=== PATIENT | female | born 1950 | race Caucasian/White ===

== ENCOUNTER 2017-02-23 08:55 | Day surgery (SDC) | payer MEDICARE ==
[2011-10-25 21:37] VITALS: BP 146/88
[2017-02-23] MEDS ORDERED: DIPRIVAN 200 MG/20 ML IV ONE (08:56)
[2017-02-23] MEDS ORDERED: Lactated Ringers 1,000 ML IV ONE (08:56)
[2017-02-23] MEDS ORDERED: Xylocaine 1% Vial 30 ML PF IJ ONE (08:56)
[2017-02-23] MEDS ORDERED: Ketamine HCl 50 MG/ML IV ONE (08:56)
[2017-02-23] MEDS ORDERED: Marcaine 0.5% SDV 10 ML IJ ONE (08:56)
--- NOTE | 2017-02-23 11:13 | XRAY ---
Indication: Right knee GNB. Intraoperative fluoroscopy was provided for 1 minute 17 seconds. 5 digital spot images submitted for interpretation demonstrates 3 anterior spinal needle tips projecting over the distal femur and 1 anterior spinal needle tip projecting over the proximal medial tibia. Correlate with intraoperative findings/report.
--- NOTE | 2017-02-23 11:38 | OP ---
DATE OF PROCEDURE: 02/23/2017 0954 SURGEON: Cristopher Mustafa D.O. PREOPERATIVE DIAGNOSIS: Knee pain. POSTOPERATIVE DIAGNOSIS: Knee pain. PROCEDURES PERFORMED: Right genicular nerve block under fluoroscopic guidance. DESCRIPTION OF THE PROCEDURE: The patient was taken to the operating room and laid in the supine position on the table. The skin over the injection site was prepped and draped in sterile fashion. Under fluoroscope, the target bony structure site was visualized. Induction agent was given as per anesthesia while vital signs were monitored. Local anesthetic agent was introduced to anesthetize the skin in the subcutaneous tissue through the injection site. Under fluoroscopic guidance, a 20-gauge spinal needle was advanced into the target genicular nerves. 0.5 cc of 1% lidocaine and 0.5 cc of 0.25% Marcaine preservative free was injected into the target nerve. After the needle was removed, the skin was cleansed with alcohol and then a bandage was applied. No complications or adverse consequences were observed. The patient was returned to the holding area until stabilized before being discharged to home. There was 100% pain relief after the procedure. The patient will be followed up within 10 days after the injection for re-evaluation.
--- NOTE | 2017-02-23 13:42 | XRAY ---
1 minute 17 seconds fluoroscopy time in surgery for GNB.
== END 2017-02-23 11:10 | disposition home or self-care (01) ==
LOC: SDC-PAIN 08:55
PROVIDERS: ATTEND Internal Medicine
DX: M17.11 Unilateral primary osteoarthritis, right knee (principal); M15.9 Polyosteoarthritis, unspecified; M25.561 Pain in right knee
CPT/HCPCS: 64450; 73560; 77003; J2001; J2704

== ENCOUNTER 2017-03-09 11:21 | Day surgery (SDC) | payer MEDICARE ==
[2011-10-25 21:37] VITALS: BP 146/88
[2017-03-09] MEDS ORDERED: Marcaine 0.5% SDV 10 ML IJ ONE (11:22)
[2017-03-09] MEDS ORDERED: DIPRIVAN 200 MG/20 ML IV ONE (11:22)
[2017-03-09] MEDS ORDERED: Xylocaine 1% Vial 30 ML PF IJ ONE (11:22)
[2017-03-09] MEDS ORDERED: Lactated Ringers 1,000 ML IV ONE (11:22)
--- NOTE | 2017-03-09 14:59 | OP ---
DATE OF PROCEDURE: 03/09/2017 1210 SURGEON: Cristopher Mustafa D.O. PREOPERATIVE DIAGNOSES: Degenerative knee disease, osteoarthritis of the knee, knee pain. POSTOPERATIVE DIAGNOSES: Degenerative knee disease, osteoarthritis of the knee, knee pain. PROCEDURE PERFORMED: Right knee genicular nerve block under fluoroscopic guidance. DESCRIPTION OF THE PROCEDURE: The patient was taken to the operating room and laid in the supine position on the table. The skin over the injection site was prepped and draped in sterile fashion. Under fluoroscope, the target bony structure site was visualized. Induction agent was given as per anesthesia while vital signs were monitored. Local anesthetic agent was introduced to anesthetize the skin in the subcutaneous tissue through the injection site. Under fluoroscopic guidance, a 20-gauge spinal needle was advanced into the target genicular nerves. The preservative free 0.5 cc of 1% lidocaine and 0.5 cc of 0.25 - 0.5% Marcaine were injected into the target nerve. After the needle was removed, the skin was cleansed with alcohol and then a bandage was applied. No complications or adverse consequences were observed. The patient was returned to the holding area until stabilized before being discharged to home. There was 90% pain reduction after the procedure. The patient will be followed up within 10 days after the injection for re-evaluation.
--- NOTE | 2017-03-09 15:27 | XRAY ---
Indication: Right knee GNB. Intraoperative fluoroscopy was provided for 49 seconds. 4 digital spot images submitted for interpretation demonstrates 3 anterior spinal needle tips projecting over the distal femur and 1 anterior spinal needle tip projecting over the proximal medial tibia. Correlate with intraoperative findings/report.
--- NOTE | 2017-03-09 15:37 | XRAY ---
49 seconds fluoroscopy time in surgery for right GNB.
== END 2017-03-09 12:55 | disposition home or self-care (01) ==
LOC: SDC-PAIN 11:21
PROVIDERS: ATTEND Internal Medicine
DX: M25.561 Pain in right knee (principal); M17.11 Unilateral primary osteoarthritis, right knee; M15.9 Polyosteoarthritis, unspecified
CPT/HCPCS: 64450; 73560; 77003; J2001; J2704

== ENCOUNTER 2017-04-20 09:14 | Day surgery (SDC) | payer MEDICARE ==
[2011-10-25 21:37] VITALS: BP 146/88
[2017-04-20] MEDS ORDERED: DIPRIVAN 200 MG/20 ML IV ONE (09:15)
[2017-04-20] MEDS ORDERED: Marcaine 0.5% SDV 10 ML IJ ONE (09:15)
[2017-04-20] MEDS ORDERED: Lactated Ringers 1,000 ML IV ONE (09:15)
[2017-04-20] MEDS ORDERED: Xylocaine-Mpf 2% 5 Ml Vial IJ ONE (09:15)
--- NOTE | 2017-04-20 15:16 | XRAY ---
Indication: Right knee RFA. Intraoperative fluoroscopy was provided for 36 seconds. 5 digital spot images submitted for interpretation demonstrates 3 anterior needle tips projecting over the distal femur and 1 anterior needle tip projecting over the proximal medial tibia. Correlate with intraoperative findings/report.
--- NOTE | 2017-04-20 15:25 | XRAY ---
36 seconds fluoroscopy time in surgery for right knee RFA.
--- NOTE | 2017-04-21 08:33 | OP ---
DATE OF PROCEDURE: 04/20/2017 1250 SURGEON: Cristopher Mustafa D.O. PREOPERATIVE DIAGNOSIS: Degenerative knee disease, osteoarthritis of the knee, knee pain. POSTOPERATIVE DIAGNOSIS: Degenerative knee disease, osteoarthritis of the knee, knee pain. PROCEDURES PERFORMED: Right genicular nerve radiofrequency ablation under fluoroscopic guidance. DESCRIPTION OF THE PROCEDURE: The patient was taken to the operating room and laid in the supine position on the table. The skin over the injection site was prepped and draped in sterile fashion. Under fluoroscope, the bony anatomy at the target insertion site was visualized. Induction agent was given as per anesthesia, while vital signs were monitored. Local anesthetic agent was introduced to anesthetize the skin in the subcutaneous tissue through the injection site. Under fluoroscopic guidance a standard size spinal needle with cannula was advanced into the target medial branch nerve as per standard protocol. Before the radiofrequency ablation motor and sensory nerve testing was conducted as per protocol. Under the safety guidance which ensured no motor nerves being involved, right genicular nerve radiofrequency ablation was conducted at 80 degrees Celsius for 90 seconds as per standard protocol for each level of radiofrequency ablation. After the needle and cannula were removed the skin was cleansed with alcohol and then a bandage was applied. No complications or adverse consequences were observed. The patient was returned to the holding area until stabilized before being discharged to home. The self-reported preoperative pain level is 9 out of 10. Postoperative pain level is 0 out of 10. The patient will be followed up within 10 days after the genicular nerve block for further re-evaluation.
== END 2017-04-20 13:50 | disposition home or self-care (01) ==
LOC: SDC-PAIN 09:14
PROVIDERS: ATTEND Internal Medicine
DX: M25.512 Pain in left shoulder (principal); M25.561 Pain in right knee; M17.11 Unilateral primary osteoarthritis, right knee; Z79.891 Long term (current) use of opiate analgesic
CPT/HCPCS: 64640; 73560; 77003; J2704

== ENCOUNTER 2017-07-13 15:48 | Emergency (ER) | payer MEDICARE ==
--- NOTE | 2017-07-13 16:41 | ERPHSYRPT ---
- History of Present Illness Time Seen by Provider: 07/13/17 16:33 Source: patient Exam Limitations: no limitations Patient Subjective Stated Complaint: low blood pressure, weak, tired Triage Nursing Assessment: Pt A&O x3, complaints of low blood pressure, tiredness and weakness, bp 152/83 upon arrival, blood sugar 90, pulses normal, no difficulties with strength, denies pain, temp 99.2, doesn't appear to be in any distress Physician History: 66 morbidly obese white female with history of migraines, high blood pressure congestive heart failure, hypothyroidism. Arrives with complaints of feeling weak and tired symptoms all day she states that her ears are been ringing patient states that she noticed her blood pressure to be low at home 98/40. Patient arrives with normal blood pressure she has not had any speech disorders she is not having any problems moving. past medical history includes migraines, high blood pressure, congestive heart failure, hypothyroidism, arthritis, fibromyalgia, irritable bowel, depression Past surgical history includes appendectomy, cholecystectomy, joint replacement , hysterectomy, back surgery, gastric bypass, tonsillectomy. Timing/Duration: today Severity: mild Modifying Factors: Improves With: nothing Associated Symptoms: malaise, weakness, No nausea, No vomiting, No abdominal pain, No shortness of breath, No heartburn, No diaphoresis, No cough, No chills , No chest pain, No fever, No headaches, No loss of appetite, No syncope, No seizure Allergies/Adverse Reactions: No Known Drug Allergies Allergy (Verified 07/13/17 16:02) Home Medications: Meloxicam 15 mg [Meloxicam 15 MG] 15 mg PO DAILY 09/03/16 [History] Tizanidine HCl 4 mg [Zanaflex 4 MG] 4 mg PO HS 09/03/16 [History] Allopurinol 100 mg [Zyloprim 100 mg] 200 mg PO DAILY 04/05/17 [History] Carvedilol 12.5 mg [Coreg 12.5 mg] 12.5 mg PO BID 04/05/17 [History] Duloxetine HCl 60 mg PO DAILY 04/05/17 [History] Glimepiride 2 mg [Amaryl 2 MG] 2 mg PO DAILY 04/05/17 [History] Levothyroxine Sodium 50 Mcg [Synthroid 50 Mcg] 50 mcg PO DAILY 04/05/17 [ History] Olmesartan Medoxomil [Benicar] 40 mg PO DAILY 04/05/17 [History] Omeprazole 40 mg PO DAILY 04/05/17 [History] Trazodone HCl 50 mg [Desyrel 50 mg] 50 mg PO HS 04/05/17 [History] Triamterene/Hydrochlorothiazid [Triamterene-Hctz 37.5-25 mg Cp] 1 each PO DAILY 04/05/17 [History] Zaleplon [Sonata] 10 mg PO HS 04/05/17 [History] Oxycodone HCl/Acetaminophen [Percocet 10-325 mg Tablet] 1 each PO Q8H PRN PRN [History] Furosemide 20 mg [Lasix 20 mg] 20 mg PO DAILY 05/03/17 [History] Furosemide [Lasix] 80 mg PO DAILY 05/03/17 [History] Felodipine [Plendil] 10 mg PO DAILY 07/13/17 [History] Hx Tetanus, Diphtheria Vaccination/Date Given: Yes (unknown) Hx Influenza Vaccination/Date Given: No Hx Pneumococcal Vaccination/Date Given: No - Review of Systems Constitutional: Malaise, Weakness, No Fever, No Chills Eyes: No Symptoms Ears, Nose, & Throat: No Symptoms, Other (feels like ears were ringing today) Respiratory: No Cough, No Dyspnea Cardiac: No Chest Pain, No Edema, No Syncope Abdominal/Gastrointestinal: No Abdominal Pain, No Nausea, No Vomiting, No Diarrhea Genitourinary Symptoms: No Dysuria Musculoskeletal: No Symptoms Skin: No Rash Neurological: No Dizziness, No Focal Weakness, No Sensory Changes Psychological: No Symptoms Endocrine: No Symptoms All Other Systems: Reviewed and Negative - Past Medical History Pertinent Past Medical History: Yes Neurological History: No Pertinent History ENT History: No Pertinent History Cardiac History: Hypertension Respiratory History: Asthma Endocrine Medical History: Hypoglycemia Musculoskeletal History: Arthritis GI Medical History: Irritable Bowel History: No Pertinent History Psycho-Social History: Depression Female Reproductive Disorders: No Pertinent History - Past Surgical History Past Surgical History: Yes Neuro Surgical History: No Pertinent History Cardiac: No Pertinent History Respiratory: No Pertinent History Gastrointestinal: Appendectomy, Cholecystectomy Genitourinary: No Pertinent History Musculoskeletal: Joint Replacement, Other Female Surgical History: Hysterectomy Other Surgical History: back surgery. gastric bypass. tonsilectomy - Social History Smoking Status: Never smoker Exposure to second hand smoke: No Drug Use: none Patient Lives Alone: No - Nursing Vital Signs Nursing Vital Signs: Initial Vital Signs Temperature 99.2 F 07/13/17 15:53 Pulse Rate 83 07/13/17 15:53 Blood Pressure 152/83 07/13/17 15:53 O2 Sat by Pulse Oximetry 96 07/13/17 15:53 Pain Scale Pain Intensity 0 - Physical Exam General Appearance: other (well-developed obese white female alert oriented ) Eye Exam: PERRL/EOMI, eyes nml inspection Ears, Nose, Throat Exam: normal ENT inspection, TMs normal, pharynx normal, moist mucous membranes Neck Exam: normal inspection, non-tender, supple, full range of motion Respiratory Exam: normal breath sounds, lungs clear, No respiratory distress Cardiovascular Exam: regular rate/rhythm, normal heart sounds, normal peripheral pulses Gastrointestinal/Abdomen Exam: soft, normal bowel sounds, No tenderness, No mass Back Exam: normal inspection, normal range of motion, No CVA tenderness, No vertebral tenderness Extremity Exam: normal inspection, normal range of motion, pelvis stable Neurologic Exam: alert, oriented x 3, cooperative, 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, normal mood/affect, nml cerebellar function, nml station & gait, sensation nml, No motor deficits Skin Exam: normal color, warm, dry, No rash Lymphatic Exam: No adenopathy SpO2 Interpretation: normal SpO2: 96 Oxygen Delivery: Room Air - Course Nursing assessment & vital signs reviewed: Yes EKG Interpreted by Me: RATE (67 bpm), Sinus Rhythm, NORMAL AXIS, Other (EKG: Sinus rhythm, 67 bpm, normal axis, no acute ST or T wave changes, essentially normal EKG) Ordered Tests: Active Orders 24 hr Category Date Time Status Accucheck STAT Care 07/13/17 16:37 Active Associate Engineer STAT Care 07/13/17 16:37 Active EKG-ER Only STAT Care 07/13/17 16:37 Active IV Insertion STAT Care 07/13/17 16:37 Active Orthostatic Vital Signs STAT Care 07/13/17 16:38 Active CBC W DIFF Stat Lab 07/13/17 16:23 Completed CMP Stat Lab 07/13/17 16:23 Completed CULTURE,URINE Stat Lab 07/13/17 19:30 Received ETHYL ALCOHOL Stat Lab 07/13/17 16:23 Completed UA W/ MICROSCOPIC Stat Lab 07/13/17 19:30 Completed Urine Triage Profile Stat Lab 07/13/17 19:30 Completed Medication Summary Generic Name Dose Route Start Last Admin Trade Name Freq PRN Reason Stop Dose Admin Sodium Chloride 1,000 mls @ 100 mls/hr 07/13/17 16:45 07/13/17 16:43 Sodium Chloride 0.9% 1000 Ml IV 08/12/17 16:44 100 mls/hr .Q10H REFUGIO Administration Discontinued Medications Generic Name Dose Route Start Last Admin Trade Name Freq PRN Reason Stop Dose Admin Potassium Bicarbonate 25 meq 07/13/17 19:15 07/13/17 19:22 K-Lyte 25 Meq PO 07/13/17 19:16 25 meq STAT ONE Administration Potassium Bicarbonate Confirm 07/13/17 19:19 K-Lyte 25 Meq Administered 07/13/17 19:20 Dose 25 meq .ROUTE .STK-MED ONE Lab/Rad Data: Laboratory Result Diagrams 07/13/17 16:23 07/13/17 16:23 Laboratory Results 07/13/17 07/13/17 07/13/17 Range/Units 19:30 19:30 16:23 WBC (4.0-10.5) K/mm3 RBC (4.1-5.4) M/mm3 Hgb (12.0-16.0) gm/dl Hct (35-47) % MCV (78-100) fl MCH (26-32) pg MCHC (32-36) g/dl RDW (11.5-14.0) % Plt Count (150-450) K/mm3 MPV (6-9.5) fl Gran % (36.0-66.0) % Eos # (Auto) (0-0.5) Absolute Lymphs (auto) (1.0-4.6) Absolute Monos (auto) (0.0-1.3) Lymphocytes % (24.0-44.0) % Monocytes % (0.0-12.0) % Eosinophils % (0.00-5.0) % Basophils % (0.0-0.4) % Absolute Granulocytes (1.4-6.9) Basophils # (0-0.4) Sodium 145 (137-145) mmol/L Potassium 3.3 L (3.5-5.1) mmol/L Chloride 110 H (98-107) mmol/L Carbon Dioxide 25 (22-30) mmol/L Anion Gap 13.7 (5-15) MEQ/L BUN 18 H (7-17) mg/dL Creatinine 0.68 (0.52-1.04) mg/dL Estimated GFR > 60.0 ML/MIN Glucose 85 (74-106) mg/dL Calcium 9.0 (8.4-10.2) mg/dL Total Bilirubin 0.30 (0.2-1.3) mg/dL AST 26 (14-36) U/L ALT 31 (0-35) U/L Alkaline Phosphatase 127 H (38-126) U/L Serum Total Protein 6.5 (6.3-8.2) g/dL Albumin 3.7 (3.5-5.0) g/dL Ur Collection Type VOID Urine Color YELLOW (YELLOW) Urine Appearance SLIGHTLY CLOUDY (CLEAR) Urine pH 5.0 (5-6) Ur Specific [place] 1.020 (1.005-1.025) Urine Protein NEGATIVE (Negative) Urine Ketones NEGATIVE (NEGATIVE) Urine Blood NEGATIVE (0-5) Adi/ul Urine Nitrite NEGATIVE (NEGATIVE) Urine Bilirubin NEGATIVE (NEGATIVE) Urine Urobilinogen NORMAL (0-1) mg/dL Ur Leukocyte Esterase 1+ (NEGATIVE) Urine Microscopic RBC 0-2 (0-2) /HPF Urine Microscopic WBC 10-15 (0-5) /HPF Ur Epithelial Cells MANY (FEW) /HPF Calcium Oxalate Crystal 0-2 (NEGATIVE) /HPF Urine Bacteria MANY (NEGATIVE) /HPF Urine Mucus MODERATE (NEGATIVE) /HPF Urine Culture Reflexed YES (NO) Urine Glucose NEGATIVE (NEGATIVE) mg/dL Urine Opiates Level POSITIVE (NEGATIVE) Ur Methadone NEGATIVE (NEGATIVE) Urine Barbiturates NEGATIVE (NEGATIVE) Ur Phencyclidine (PCP) NEGATIVE (NEGATIVE) Urine Amphetamine NEGATIVE (NEGATIVE) U Benzodiazepine Level NEGATIVE (NEGATIVE) Urine Cocaine NEGATIVE (NEGATIVE) Urine Marijuana (THC) NEGATIVE (NEGATIVE) Ethyl Alcohol < 10 (0-10) mg/dL Specimen Received 07/13/17193907/13/17 Range/Units 16:23 WBC 7.0 (4.0-10.5) K/mm3 RBC 4.33 (4.1-5.4) M/mm3 Hgb 14.9 (12.0-16.0) gm/dl Hct 43.6 (35-47) % MCV 100.7 H (78-100) fl MCH 34.4 H (26-32) pg MCHC 34.2 (32-36) g/dl RDW 14.2 H (11.5-14.0) % Plt Count 209 (150-450) K/mm3 MPV 10.6 H (6-9.5) fl Gran % 41.0 (36.0-66.0) % Eos # (Auto) 0.42 (0-0.5) Absolute Lymphs (auto) 3.19 (1.0-4.6) Absolute Monos (auto) 0.51 (0.0-1.3) Lymphocytes % 45.4 H (24.0-44.0) % Monocytes % 7.3 (0.0-12.0) % Eosinophils % 6.0 H (0.00-5.0) % Basophils % 0.3 (0.0-0.4) % Absolute Granulocytes 2.89 (1.4-6.9) Basophils # 0.02 (0-0.4) Sodium (137-145) mmol/L Potassium (3.5-5.1) mmol/L Chloride (98-107) mmol/L Carbon Dioxide (22-30) mmol/L Anion Gap (5-15) MEQ/L BUN (7-17) mg/dL Creatinine (0.52-1.04) mg/dL Estimated GFR ML/MIN Glucose (74-106) mg/dL Calcium (8.4-10.2) mg/dL Total Bilirubin (0.2-1.3) mg/dL AST (14-36) U/L ALT (0-35) U/L Alkaline Phosphatase (38-126) U/L Serum Total Protein (6.3-8.2) g/dL Albumin (3.5-5.0) g/dL Ur Collection Type Urine Color (YELLOW) Urine Appearance (CLEAR) Urine pH (5-6) Ur Specific [place] (1.005-1.025) Urine Protein (Negative) Urine Ketones (NEGATIVE) Urine Blood (0-5) Adi/ul Urine Nitrite (NEGATIVE) Urine Bilirubin (NEGATIVE) Urine Urobilinogen (0-1) mg/dL Ur Leukocyte Esterase (NEGATIVE) Urine Microscopic RBC (0-2) /HPF Urine Microscopic WBC (0-5) /HPF Ur Epithelial Cells (FEW) /HPF Calcium Oxalate Crystal (NEGATIVE) /HPF Urine Bacteria (NEGATIVE) /HPF Urine Mucus (NEGATIVE) /HPF Urine Culture Reflexed (NO) Urine Glucose (NEGATIVE) mg/dL Urine Opiates Level (NEGATIVE) Ur Methadone (NEGATIVE) Urine Barbiturates (NEGATIVE) Ur Phencyclidine (PCP) (NEGATIVE) Urine Amphetamine (NEGATIVE) U Benzodiazepine Level (NEGATIVE) Urine Cocaine (NEGATIVE) Urine Marijuana (THC) (NEGATIVE) Ethyl Alcohol (0-10) mg/dL Specimen Received - Progress Progress: improved Progress Note: 07/13/17 18:55 Patient is stable CBC chemistry essentially normal glucose is 85. Still waiting for urine. 07/13/17 20:08 Patient feeling better after IV fluids. Urine shows 10-15 white cells. Orthostats are stable. Patient with mild hypokalemia of 3.3 on chemistry patient's white count is 7.0 hemoglobin 14.3 hematocrit 43.6 Will discharge patient - Departure Time of Disposition: 20:10 Departure Disposition: Home Clinical Impression: Dizziness UTI (urinary tract infection) Qualifiers: Urinary tract infection type: site unspecified Hematuria presence: without hematuria Qualified Code(s): N39.0 - Urinary tract infection, site not specified Condition: Fair Critical Care Time: No Referrals: GIOVANI GARCIA [Primary Care Provider] - Additional Instructions: Return home. Plenty of fluids. Macrobid one orally twice a day for 10 days. Follow-up with your family doctor. Return for acute distress or for severe symptoms. Prescriptions: Nitrofurantoin Macro 100 mg [Macrobid 100MG Capsule] 100 mg PO BID #20 cap
[2017-07-13] MEDS ORDERED: Sodium Chloride 0.9% 1000 ML 1,000 ML ONE (16:42)
[2017-07-13] MEDS ORDERED: Sodium Chloride 0.9% 1000 ML 1,000 ML IV SCH (16:45)
[2017-07-13 17:06] LABS: BASOPHIL % 0.3 % (0.0-0.4); Basophil (Absolute #) 0.02 (0-0.4); Eosinophil (Absolute #) 0.42 (0-0.5); Granulocyte Absolute (ANC) 2.89 (1.4-6.9); Hematocrit 43.6 % (35-47); Hemoglobin 14.9 gm/dl (12.0-16.0); Lymphocyte (Absolute #) 3.19 (1.0-4.6); Lymphocytes % 45.4 % (24.0-44.0); Mean Cell Volume 100.7 fl (78-100); Mean Corpuscular Hemoglobin 34.4 pg (26-32); Mean Corpuscular Hgb Concent. 34.2 g/dl (32-36); Mean Platelet Volume 10.6 fl (6-9.5); Monocyte (Absolute #) 0.51 (0.0-1.3); Monocytes % 7.3 % (0.0-12.0); Platelet Count 209 K/mm3 (150-450); Red Blood Count 4.33 M/mm3 (4.1-5.4); Red Cell Distribution Width 14.2 % (11.5-14.0)
[2017-07-13 17:34] LABS: ALBUMIN 3.7 g/dL (3.5-5.0); ALKALINE PHOSPHATASE 127 U/L (38-126); ANION GAP 13.7 MEQ/L (5-15); BLOOD UREA NITROGEN 18 mg/dL (7-17); CHLORIDE 110 mmol/L (98-107); Carbon Dioxide 25 mmol/L (22-30); Creatinine 1 0.68 mg/dL (0.52-1.04); Glucose 85 mg/dL (74-106); Potassium 3.3 mmol/L (3.5-5.1); SGOT/AST 26 U/L (14-36); SGPT/ALT 31 U/L (0-35); SODIUM 145 mmol/L (137-145); Total Protein 6.5 g/dL (6.3-8.2)
[2017-07-13 18:27] LABS: ETHYL ALCOHOL < 10 mg/dL (0-10)
[2017-07-13 18:46] VITALS: O2SAT 96
[2017-07-13] MEDS ORDERED: K-LYTE 25 MEQ PO ONE (19:15)
[2017-07-13] MEDS ORDERED: K-LYTE 25 MEQ ONE (19:19)
[2017-07-13 19:27] VITALS: PULSE 77
[2017-07-13 19:59] LABS: Appearance SLIGHTLY CLOUDY (CLEAR); Leukocyte Esterase 1+ (NEGATIVE)
[2017-07-13 20:00] LABS: Bilirubin NEGATIVE (NEGATIVE); Blood NEGATIVE Ery/ul (0-5); Glucose NEGATIVE (NEGATIVE); Ketones NEGATIVE (NEGATIVE); Nitrite NEGATIVE (NEGATIVE); Protein,Urine Dip NEGATIVE (Negative); Urobilinogen NORMAL mg/dL (0-1)
[2017-07-13 20:01] LABS: Amphetamine,Urine NEGATIVE (NEGATIVE); Bacteria MANY /HPF (NEGATIVE); Barbiturate,Urine NEGATIVE (NEGATIVE); Benzodiazepine,Urine NEGATIVE (NEGATIVE); Calcium Oxalate Crystals 0-2 /HPF (NEGATIVE); Cocaine,Urine NEGATIVE (NEGATIVE); Epithelial Cells MANY /HPF (FEW); Methadone,Urine NEGATIVE (NEGATIVE); Mucus MODERATE /HPF (NEGATIVE); Opiate,Urine POSITIVE (NEGATIVE); PCP,Urine NEGATIVE (NEGATIVE); RBC 0-2 /HPF (0-2); THC,Urine NEGATIVE (NEGATIVE)
[2017-07-13 20:11] VITALS: BP 131/69
== END 2017-07-13 20:26 | disposition home or self-care (01) ==
LOC: ED 15:48
DX: R42 Dizziness and giddiness (principal); E87.6 Hypokalemia; N39.0 Urinary tract infection, site not specified; Z79.899 Other long term (current) drug therapy; R53.1 Weakness
CPT/HCPCS: 36000; 36415; 80053; 80307; 81000; 82962; 85025; 87086; 93005; 93041; 96360; 99284; A9270-GY; G0480

== ENCOUNTER 2017-11-23 09:27 | Day surgery (SDC) | payer MEDICARE ==
[2011-10-25 21:37] VITALS: BP 146/88
[2017-11-23] MEDS ORDERED: DIPRIVAN 200 MG/20 ML IV ONE (09:28)
[2017-11-23] MEDS ORDERED: Depo-Medrol 40 MG/ML IM ONE (09:28)
[2017-11-23] MEDS ORDERED: Xylocaine 1% Vial 30 ML PF IJ ONE (09:28)
[2017-11-23] MEDS ORDERED: Marcaine 0.5% SDV 10 ML IJ ONE (09:28)
[2017-11-23] MEDS ORDERED: Lactated Ringers 1,000 ML IV ONE (10:52)
--- NOTE | 2017-11-23 13:04 | XRAY ---
Indication: Left shoulder cortisone injection. Intraoperative fluoroscopy was provided for 24 seconds. 4 digital spot images submitted for interpretation demonstrates needle tip projecting over the superior glenohumeral joint. Small amount of contrast injected for needle tip placement. Correlate with intraoperative findings/report.
--- NOTE | 2017-11-23 14:34 | XRAY ---
24 seconds fluoroscopy time in surgery for left shoulder injection.
== END 2017-11-23 11:00 | disposition home or self-care (01) ==
LOC: SDC-PAIN 09:27
PROVIDERS: ATTEND Psychiatry & Neurology Pain Medicine
DX: M25.512 Pain in left shoulder (principal); E11.9 Type 2 diabetes mellitus without complications
CPT/HCPCS: 20610; 73030; 76000; 82962; J1030; J2001; J2704; Q9966

== ENCOUNTER 2018-01-18 07:56 | Day surgery (SDC) | payer MEDICARE ==
[2011-10-25 21:37] VITALS: BP 146/88
[2018-01-18] MEDS ORDERED: Depo-Medrol 40 MG/ML IM ONE (07:57)
[2018-01-18] MEDS ORDERED: DIPRIVAN 200 MG/20 ML IV ONE (07:57)
[2018-01-18] MEDS ORDERED: Marcaine 0.5% SDV 10 ML IJ ONE (07:57)
--- NOTE | 2018-01-18 11:00 | XRAY ---
Indication: Right knee injection. Intraoperative fluoroscopy was provided for 11 seconds. 2 digital spot images submitted for interpretation demonstrate single needle tip projecting over the intercondylar notch. Small amount of contrast injected for needle tip placement. Correlate with intraoperative findings/report.
--- NOTE | 2018-01-18 11:02 | XRAY ---
11 seconds fluoroscopy time in surgery for right knee injection.
[2018-01-18] MEDS ORDERED: Lactated Ringers 1,000 ML IV ONE (14:42)
== END 2018-01-18 09:55 | disposition home or self-care (01) ==
LOC: SDC-PAIN 07:56
PROVIDERS: ATTEND Psychiatry & Neurology Pain Medicine
DX: M25.561 Pain in right knee (principal); I10 Essential (primary) hypertension; J45.909 Unspecified asthma, uncomplicated; M19.90 Unspecified osteoarthritis, unspecified site; Z79.899 Other long term (current) drug therapy
CPT/HCPCS: 20610; 73560; 76000; 77002; 82962; J1030; J2704; Q9966

== ENCOUNTER 2018-05-31 07:55 | Day surgery (SDC) | payer MEDICARE ==
[2011-10-25 21:37] VITALS: BP 146/88
[2018-05-31] MEDS ORDERED: Ketamine HCl 50 MG/ML IV ONE (07:56)
[2018-05-31] MEDS ORDERED: Marcaine 0.5% SDV 10 ML IJ ONE (07:56)
[2018-05-31] MEDS ORDERED: DIPRIVAN 200 MG/20 ML IV ONE (07:56)
[2018-05-31] MEDS ORDERED: Depo-Medrol 40 MG/ML IM ONE (07:56)
[2018-05-31] MEDS ORDERED: Xylocaine-Mpf 2 ML IJ ONE (07:56)
--- NOTE | 2018-05-31 13:38 | XRAY ---
Indication: Left shoulder injection. Intraoperative fluoroscopy was provided for 16 seconds. Single digital spot image submitted for interpretation demonstrates needle tip projecting over the left superior glenohumeral joint. Small amount of contrast injected for needle tip placement. Correlate with intraoperative findings/report.
--- NOTE | 2018-05-31 13:42 | XRAY ---
16 seconds fluoroscopy time in surgery for left shoulder injection.
[2018-05-31] MEDS ORDERED: Lactated Ringers 1,000 ML IV ONE (15:37)
== END 2018-05-31 10:32 | disposition home or self-care (01) ==
LOC: SDC-PAIN 07:55
PROVIDERS: ATTEND Psychiatry & Neurology Pain Medicine
DX: M25.512 Pain in left shoulder (principal); M19.012 Primary osteoarthritis, left shoulder; Z79.899 Other long term (current) drug therapy; E11.9 Type 2 diabetes mellitus without complications; I10 Essential (primary) hypertension; J44.9 Chronic obstructive pulmonary disease, unspecified
CPT/HCPCS: 20610; 73030; 77002; 82962; J1030; J2704; Q9966

== ENCOUNTER 2018-06-21 07:38 | Day surgery (SDC) | payer MEDICARE ==
[2011-10-25 21:37] VITALS: BP 146/88
[2018-06-21] MEDS ORDERED: Ketamine HCl 50 MG/ML IJ ONE (07:39)
[2018-06-21] MEDS ORDERED: Depo-Medrol 40 MG/ML IM ONE (07:39)
[2018-06-21] MEDS ORDERED: DIPRIVAN 200 MG/20 ML IV ONE (07:39)
[2018-06-21] MEDS ORDERED: Marcaine 0.5% SDV 10 ML IJ ONE (07:39)
--- NOTE | 2018-06-21 10:50 | XRAY ---
Indication: Right knee injection. Intraoperative fluoroscopy was provided for 7 seconds. Single digital spot image submitted for interpretation demonstrates needle tip projecting over the right femur intercondylar notch. Small amount of contrast injected for needle tip placement. Correlate with intraoperative findings/report.
--- NOTE | 2018-06-21 11:00 | XRAY ---
7 seconds fluoroscopy time in surgery for right knee injection.
[2018-06-21] MEDS ORDERED: Lactated Ringers 1,000 ML IV ONE (12:43)
== END 2018-06-21 09:50 | disposition home or self-care (01) ==
LOC: SDC-PAIN 07:38
PROVIDERS: ATTEND Psychiatry & Neurology Pain Medicine
DX: M17.11 Unilateral primary osteoarthritis, right knee (principal); E11.9 Type 2 diabetes mellitus without complications; I10 Essential (primary) hypertension; J44.9 Chronic obstructive pulmonary disease, unspecified; Z79.899 Other long term (current) drug therapy
CPT/HCPCS: 20610; 73560; 77002; 82962; J1030; J2704; Q9966

== ENCOUNTER 2018-12-27 10:41 | Day surgery (SDC) | payer MEDICARE ==
[2011-10-25 21:37] VITALS: BP 146/88
[2018-12-27] MEDS ORDERED: Marcaine 0.5% SDV 10 ML IJ ONE (10:42)
[2018-12-27] MEDS ORDERED: Depo-Medrol 40 MG/ML IM ONE (10:42)
[2018-12-27] MEDS ORDERED: DIPRIVAN 200 MG/20 ML IV ONE (11:27)
[2018-12-27] MEDS ORDERED: Ketamine HCl 50 MG/ML ONE (11:27)
--- NOTE | 2018-12-27 12:35 | XRAY ---
Indication: Left shoulder injection. Intraoperative fluoroscopy was provided for 12 seconds. Single digital spot image submitted for interpretation demonstrates needle tip projecting over the left glenohumeral joint superiorly. Small amount of contrast injected for needle tip placement. Correlate with intraoperative findings/report.
--- NOTE | 2018-12-27 12:38 | XRAY ---
12 seconds fluoroscopy time in surgery for left shoulder intra-articular injection.
[2018-12-27] MEDS ORDERED: Lactated Ringers 1,000 ML IV ONE (16:17)
== END 2018-12-27 11:50 | disposition home or self-care (01) ==
LOC: SDC-PAIN 10:41
PROVIDERS: ATTEND Psychiatry & Neurology Pain Medicine
DX: M19.012 Primary osteoarthritis, left shoulder (principal); E11.9 Type 2 diabetes mellitus without complications; I10 Essential (primary) hypertension; J44.9 Chronic obstructive pulmonary disease, unspecified; Z79.899 Other long term (current) drug therapy
CPT/HCPCS: 73030; 77002; J1030; J2704

== ENCOUNTER 2019-01-10 09:05 | Day surgery (SDC) | payer MEDICARE ==
[2011-10-25 21:37] VITALS: BP 146/88
[2019-01-10] MEDS ORDERED: Marcaine 0.5% SDV 10 ML IJ ONE (09:06)
[2019-01-10] MEDS ORDERED: Depo-Medrol 40 MG/ML IM ONE (09:06)
[2019-01-10] MEDS ORDERED: Ketamine HCl 50 MG/ML ONE (09:45)
[2019-01-10] MEDS ORDERED: DIPRIVAN 200 MG/20 ML IV ONE (09:45)
--- NOTE | 2019-01-10 10:55 | XRAY ---
Indication: Right knee injection. Intraoperative fluoroscopy was provided for 5 seconds. Single digital spot image submitted for interpretation demonstrates needle tip projecting over the right femur intercondylar notch. Small amount of contrast injected for needle tip placement. Correlate with intraoperative findings/report.
--- NOTE | 2019-01-10 11:00 | XRAY ---
5 seconds fluoroscopy time in surgery for right intra-articular knee injection.
[2019-01-10] MEDS ORDERED: Lactated Ringers 1,000 ML IV ONE ×2 (14:31→14:33)
== END 2019-01-10 10:23 | disposition home or self-care (01) ==
LOC: SDC-PAIN 09:05
PROVIDERS: ATTEND Psychiatry & Neurology Pain Medicine
DX: M17.11 Unilateral primary osteoarthritis, right knee (principal); E11.9 Type 2 diabetes mellitus without complications; I10 Essential (primary) hypertension; J44.9 Chronic obstructive pulmonary disease, unspecified; Z79.899 Other long term (current) drug therapy
CPT/HCPCS: 20610; 73560; 77002; 82962; J1030; J2704; Q9966

== ENCOUNTER 2019-06-13 07:42 | Day surgery (SDC) | payer MEDICARE ==
[2011-10-25 21:37] VITALS: BP 146/88
[2019-06-13] MEDS ORDERED: Marcaine 0.5% SDV 10 ML IJ ONE (07:43)
[2019-06-13] MEDS ORDERED: Depo-Medrol 40 MG/ML IM ONE (07:43)
[2019-06-13] MEDS ORDERED: DIPRIVAN 200 MG/20 ML IV ONE (09:33)
[2019-06-13] MEDS ORDERED: Ketamine HCl 50 MG/ML ONE (09:33)
--- NOTE | 2019-06-13 10:37 | XRAY ---
Indication: Right knee injection. Intraoperative fluoroscopy was provided for 12 seconds. Single digital spot image submitted for interpretation demonstrates needle tip projecting over the right knee femoral notch. Small amount of contrast injected for needle tip placement. Correlate with intraoperative findings/report.
--- NOTE | 2019-06-13 10:37 | XRAY ---
Indication: Left knee injection. Intraoperative fluoroscopy was provided for 6 seconds. Single digital spot image submitted for interpretation demonstrates needle tip projecting over the left knee femoral notch. Small amount of contrast injected for needle tip placement. Correlate with intraoperative findings/report.
--- NOTE | 2019-06-13 11:19 | XRAY ---
12 seconds fluoroscopy time in surgery for right knee injection.
--- NOTE | 2019-06-13 11:19 | XRAY ---
6 seconds fluoroscopy time in surgery for left knee injection.
[2019-06-13] MEDS ORDERED: Lactated Ringers 1,000 ML IV ONE (13:48)
== END 2019-06-13 10:10 | disposition home or self-care (01) ==
LOC: SDC-PAIN 07:42
PROVIDERS: ATTEND Psychiatry & Neurology Pain Medicine
DX: M17.0 Bilateral primary osteoarthritis of knee (principal); E11.9 Type 2 diabetes mellitus without complications; I10 Essential (primary) hypertension; J44.9 Chronic obstructive pulmonary disease, unspecified; Z79.899 Other long term (current) drug therapy
CPT/HCPCS: 20610; 73560; 77002; 82962; J1030; J2704; Q9966

== ENCOUNTER 2019-09-12 08:13 | Day surgery (SDC) | payer MEDICARE ==
[2011-10-25 21:37] VITALS: BP 146/88
[2019-09-12] MEDS ORDERED: BUPIVACAINE 0.5% VIAL IJ ONE (08:14)
[2019-09-12] MEDS ORDERED: Ketamine HCl 50 MG/ML ONE (09:46)
[2019-09-12] MEDS ORDERED: DIPRIVAN 200 MG/20 ML IV ONE ×2 (09:46→09:58)
--- NOTE | 2019-09-12 12:31 | XRAY ---
Indication: Left knee genicular nerve block. Intraoperative fluoroscopy was provided for 16 seconds. 2 digital spot images of the left knee submitted for interpretation demonstrates anterior needle tips projecting medial/lateral supracondylar and medial tibial plateau. Correlate with intraoperative findings/report. Incidental anterior tibial plateau orthopedic tacks.
--- NOTE | 2019-09-12 12:31 | XRAY ---
Indication: Right knee genicular nerve block. Intraoperative fluoroscopy was provided for 13 seconds. 2 digital spot images of the right knee submitted for interpretation demonstrates anterior needle tips projecting medial/lateral supracondylar and medial tibial plateau. Correlate with intraoperative findings/report.
--- NOTE | 2019-09-12 12:44 | XRAY ---
16 seconds of fluoroscopy was used in surgery for a left knee genicular nerve block.
--- NOTE | 2019-09-12 12:44 | XRAY ---
13 seconds of fluoroscopy was used in surgery for a right knee genicular nerve block.
[2019-09-12] MEDS ORDERED: Lactated Ringers 1,000 ML IV ONE (14:38)
== END 2019-09-12 10:21 | disposition home or self-care (01) ==
LOC: SDC-PAIN 08:13
PROVIDERS: ATTEND Psychiatry & Neurology Pain Medicine
DX: M17.0 Bilateral primary osteoarthritis of knee (principal); E11.9 Type 2 diabetes mellitus without complications; I10 Essential (primary) hypertension; J44.9 Chronic obstructive pulmonary disease, unspecified; Z79.899 Other long term (current) drug therapy
CPT/HCPCS: 64454; 73560; 77002; 82962; J2704

== ENCOUNTER 2019-10-17 07:55 | Day surgery (SDC) | payer MEDICARE ==
[2011-10-25 21:37] VITALS: BP 146/88
[~2019-10-17 07:55] MED LIST: DIPRIVAN 200 MG/20 ML IV ONE; Ketamine HCl 50 MG/ML ONE; SUBLIMAZE 100 MCG/2 ML ONE; Zofran 4 MG/2 ML VIAL ONE
[2019-10-17] MEDS ORDERED: Xylocaine 1% Vial 30 ML PF IJ ONE (07:56)
[2019-10-17] MEDS ORDERED: BUPIVACAINE 0.5% VIAL IJ ONE (07:56)
[2019-10-17] MEDS ORDERED: Depo-Medrol 40 MG/ML IM ONE (07:56)
[2019-10-17] MEDS ORDERED: Lactated Ringers 1,000 ML IV ONE ×2 (10:17→15:09)
--- NOTE | 2019-10-17 10:34 | XRAY ---
Indication: Right knee genicular nerve ablation. Intraoperative fluoroscopy was provided for 22 seconds. 3 digital spot images of the right knee submitted for interpretation demonstrates anterior needle tips projecting medial/lateral supracondylar and medial tibial plateau. Correlate with intraoperative findings/report.
--- NOTE | 2019-10-17 10:54 | XRAY ---
22 seconds fluoroscopy time in surgery for right knee genicular nerve ablation.
== END 2019-10-17 09:50 | disposition home or self-care (01) ==
LOC: SDC-PAIN 07:55
PROVIDERS: ATTEND Psychiatry & Neurology Pain Medicine
DX: M17.11 Unilateral primary osteoarthritis, right knee (principal); E11.9 Type 2 diabetes mellitus without complications; I10 Essential (primary) hypertension; J44.9 Chronic obstructive pulmonary disease, unspecified; Z79.899 Other long term (current) drug therapy
CPT/HCPCS: 36415; 64624; 73560; 77002; 82962; J1030; J2001; J2405; J2704; J3010

== ENCOUNTER 2019-10-24 07:47 | Day surgery (SDC) | payer MEDICARE ==
[2011-10-25 21:37] VITALS: BP 146/88
[~2019-10-24 07:47] MED LIST changes: -SUBLIMAZE 100 MCG/2 ML ONE; +Versed 2 MG/2 ML Injection ONE; -Zofran 4 MG/2 ML VIAL ONE
[2019-10-24] MEDS ORDERED: Xylocaine 1% Vial 30 ML PF IJ ONE (07:48)
[2019-10-24] MEDS ORDERED: BUPIVACAINE 0.5% VIAL IJ ONE (07:48)
[2019-10-24] MEDS ORDERED: Depo-Medrol 40 MG/ML IM ONE (07:48)
--- NOTE | 2019-10-24 11:45 | XRAY ---
Indication: Left knee genicular nerve ablation. Intraoperative fluoroscopy was provided for 24 seconds. 2 digital spot images of the left knee submitted for interpretation demonstrates anterior needle tips projecting medial/lateral supracondylar and medial tibial plateau. Correlate with intraoperative findings/report. Incidental tibial tuberosity orthopedic tacks presumed from ACL reconstruction.
--- NOTE | 2019-10-24 11:51 | XRAY ---
24 seconds fluoroscopy time in surgery for left genicular nerve ablation.
[2019-10-24] MEDS ORDERED: Lactated Ringers 1,000 ML IV ONE (15:49)
== END 2019-10-24 09:58 | disposition home or self-care (01) ==
LOC: SDC-PAIN 07:47
PROVIDERS: ATTEND Psychiatry & Neurology Pain Medicine
DX: M17.12 Unilateral primary osteoarthritis, left knee (principal); E11.9 Type 2 diabetes mellitus without complications; I10 Essential (primary) hypertension; J44.9 Chronic obstructive pulmonary disease, unspecified
CPT/HCPCS: 64624; 73560; 77002; 82962; J1030; J2001; J2250; J2704

== ENCOUNTER 2020-04-23 09:00 | Day surgery (SDC) | payer MEDICARE ==
[2011-10-25 21:37] VITALS: BP 146/88
== END 2020-04-23 10:30 | disposition home or self-care (01) ==
LOC: SDC-PAIN 09:00
PROVIDERS: ATTEND Psychiatry & Neurology Pain Medicine
DX: Z53.8 Procedure and treatment not carried out for other reasons (principal); M17.11 Unilateral primary osteoarthritis, right knee; E11.9 Type 2 diabetes mellitus without complications
CPT/HCPCS: 82947

== ENCOUNTER 2020-04-30 07:44 | Day surgery (SDC) | payer MEDICARE ==
[2011-10-25 21:37] VITALS: BP 146/88
[2020-04-30] MEDS ORDERED: DIPRIVAN 200 MG/20 ML IV ONE ×2 (07:45→09:53)
[2020-04-30] MEDS ORDERED: BUPIVACAINE 0.5% VIAL IJ ONE (07:45)
[2020-04-30] MEDS ORDERED: Depo-Medrol 40 MG/ML IM ONE (07:45)
[2020-04-30] MEDS ORDERED: Xylocaine 1% Vial 30 ML PF IJ ONE (07:45)
[2020-04-30] MEDS ORDERED: Ketamine HCl 50 MG/ML ONE (07:45)
--- NOTE | 2020-04-30 12:33 | XRAY ---
Indication: Left knee genicular nerve ablation. Intraoperative fluoroscopy provided for 21 seconds. 2 digital spot images of the left knee submitted for interpretation demonstrates anterior needle tips projecting medial/lateral supracondylar and medial tibial plateau. Correlate with intraoperative findings/report. Incidental tibial tuberosity orthopedic tacks presumed from ACL construction.
--- NOTE | 2020-04-30 13:00 | XRAY ---
21 seconds of fluoroscopy was used in surgery for a left genicular nerve ablation.
[2020-04-30] MEDS ORDERED: Lactated Ringers 1,000 ML IV ONE (15:13)
== END 2020-04-30 10:14 | disposition home or self-care (01) ==
LOC: SDC-PAIN 07:44
PROVIDERS: ATTEND Psychiatry & Neurology Pain Medicine
DX: M17.12 Unilateral primary osteoarthritis, left knee (principal); E11.9 Type 2 diabetes mellitus without complications; I10 Essential (primary) hypertension; Z79.899 Other long term (current) drug therapy; J44.9 Chronic obstructive pulmonary disease, unspecified
CPT/HCPCS: 64624; 73560; 77002; J1030; J2001; J2704

== ENCOUNTER 2020-05-07 09:07 | Day surgery (SDC) | payer MEDICARE ==
[2011-10-25 21:37] VITALS: BP 146/88
[2020-05-07] MEDS ORDERED: Depo-Medrol 40 MG/ML IM ONE (09:08)
[2020-05-07] MEDS ORDERED: BUPIVACAINE 0.5% VIAL IJ ONE (09:08)
[2020-05-07] MEDS ORDERED: Xylocaine 1% Vial 30 ML PF IJ ONE (09:08)
[2020-05-07] MEDS ORDERED: Ketamine HCl 50 MG/ML ONE (09:20)
[2020-05-07] MEDS ORDERED: DIPRIVAN 200 MG/20 ML IV ONE (09:20)
[2020-05-07] MEDS ORDERED: Versed 2 MG/2 ML Injection ONE (10:09)
--- NOTE | 2020-05-07 11:29 | XRAY ---
Indication: Right knee genicular nerve ablation. Intraoperative fluoroscopy provided for 20 seconds. 3 digital spot images of the right knee submitted for interpretation demonstrate anterior needle tips projecting medial/lateral supracondylar and medial tibial plateau. Correlate with intraoperative findings/report.
--- NOTE | 2020-05-07 13:00 | XRAY ---
20 seconds fluoroscopy time in surgery for right genicular nerve ablation.
[2020-05-07] MEDS ORDERED: Lactated Ringers 1,000 ML IV ONE (14:33)
== END 2020-05-07 10:41 | disposition home or self-care (01) ==
LOC: SDC-PAIN 09:07
PROVIDERS: ATTEND Psychiatry & Neurology Pain Medicine
DX: M17.11 Unilateral primary osteoarthritis, right knee (principal); E11.9 Type 2 diabetes mellitus without complications; I10 Essential (primary) hypertension; J44.9 Chronic obstructive pulmonary disease, unspecified; Z79.899 Other long term (current) drug therapy
CPT/HCPCS: 64624; 73560; 77002; 82947; J1030; J2001; J2250; J2704

== ENCOUNTER 2021-05-13 09:51 | Day surgery (SDC) | payer MEDICARE ==
[2011-10-25 21:37] VITALS: BP 146/88
[2021-05-13] MEDS ORDERED: Xylocaine-Mpf 2% 5 Ml Vial ONE (12:16)
[2021-05-13] MEDS ORDERED: DIPRIVAN 200 MG/20 ML IV ONE ×2 (12:42→12:52)
[2021-05-13] MEDS ORDERED: Lactated Ringers 1,000 ML IV ONE (13:14)
--- NOTE | 2021-05-13 14:08 | XRAY ---
Indication: Right knee genicular nerve ablation. Intraoperative fluoroscopy provided for 38 seconds. 3 digital spot images of the right knee submitted for interpretation demonstrate anterior needle tips projecting medial/lateral supracondylar and medial tibial plateau. Correlate with intraoperative findings/report.
--- NOTE | 2021-05-14 09:35 | XRAY ---
29 seconds fluoroscopy time in surgery for right T8-T11 RFA.
== END 2021-05-13 13:18 | disposition home or self-care (01) ==
LOC: SDC-PAIN 09:51
PROVIDERS: ATTEND Psychiatry & Neurology Pain Medicine
DX: M17.11 Unilateral primary osteoarthritis, right knee (principal); E11.9 Type 2 diabetes mellitus without complications; I10 Essential (primary) hypertension; Z79.899 Other long term (current) drug therapy
CPT/HCPCS: 73560; 77002; 82947; J2704

== ENCOUNTER 2021-05-20 07:50 | Day surgery (SDC) | payer MEDICARE ==
[2011-10-25 21:37] VITALS: BP 146/88
[2021-05-20] MEDS ORDERED: Depo-Medrol 40 MG/ML IM ONE (07:51)
[2021-05-20] MEDS ORDERED: Xylocaine 1% Vial 30 ML PF IJ ONE (07:51)
[2021-05-20] MEDS ORDERED: BUPIVACAINE 0.5% VIAL IJ ONE (07:51)
[2021-05-20] MEDS ORDERED: DIPRIVAN 200 MG/20 ML IV ONE ×2 (09:45→10:04)
[2021-05-20] MEDS ORDERED: Lactated Ringers 1,000 ML IV ONE (09:52)
--- NOTE | 2021-05-20 11:57 | XRAY ---
Indication: Left knee genicular nerve RFA Intraoperative fluoroscopy provided for 25 seconds. 2 digital spot images left knee submitted for interpretation demonstrates anterior needle tips projecting medial/lateral supracondylar and lateral tibial plateau. Correlate with intraoperative findings/report.
--- NOTE | 2021-05-20 12:11 | XRAY ---
25 seconds fluoroscopy time in surgery for genicular RFA of the left knee.
== END 2021-05-20 10:20 | disposition home or self-care (01) ==
LOC: SDC-PAIN 07:50
PROVIDERS: ATTEND Psychiatry & Neurology Pain Medicine
DX: M17.12 Unilateral primary osteoarthritis, left knee (principal); E11.9 Type 2 diabetes mellitus without complications; I10 Essential (primary) hypertension; Z79.899 Other long term (current) drug therapy
CPT/HCPCS: 64624; 73560; 77002; 82947; J1030; J2001; J2704

== ENCOUNTER 2021-06-17 10:50 | Day surgery (SDC) | payer MEDICARE ==
[2011-10-25 21:37] VITALS: BP 146/88
[2021-06-17] MEDS ORDERED: LIDOCAINE HCL 2% 100 MG/5 ML IJ ONE (10:51)
[2021-06-17] MEDS ORDERED: DIPRIVAN 200 MG/20 ML IV ONE (13:28)
[2021-06-17] MEDS ORDERED: Lactated Ringers 1,000 ML IV ONE (13:41)
--- NOTE | 2021-06-17 13:52 | XRAY ---
Indication: Bilateral L4-S1 MBB. Intraoperative fluoroscopy provided for 16 seconds. Single digital spot image submitted for interpretation demonstrates posterior needle tips projecting over the expected left and right L4-S1 nerve roots. Correlate with intraoperative findings/report.
--- NOTE | 2021-06-17 14:24 | XRAY ---
16 seconds of fluoroscopy was used in surgery for a bilateral L4-S1 MBB.
== END 2021-06-17 13:40 | disposition home or self-care (01) ==
LOC: SDC-PAIN 10:50
PROVIDERS: ATTEND Psychiatry & Neurology Pain Medicine
DX: M47.816 Spondylosis without myelopathy or radiculopathy, lumbar region (principal); E11.9 Type 2 diabetes mellitus without complications; I10 Essential (primary) hypertension; Z79.899 Other long term (current) drug therapy
CPT/HCPCS: 64493; 64494; 72020; 77002; 82947; J2704

== ENCOUNTER 2021-07-15 08:40 | Day surgery (SDC) | payer MEDICARE ==
[2011-10-25 21:37] VITALS: BP 146/88
[2021-07-15] MEDS ORDERED: Marcaine Mpf 0.5% Vial 30 Ml IJ ONE (08:41)
[2021-07-15] MEDS ORDERED: Lactated Ringers 1,000 ML IV ONE (08:41)
[2021-07-15] MEDS ORDERED: DIPRIVAN 200 MG/20 ML IV ONE (09:56)
--- NOTE | 2021-07-15 12:03 | XRAY ---
16 seconds of fluoroscopy was used in surgery for a bilateral L4-S1 MBB.
== END 2021-07-15 10:20 | disposition home or self-care (01) ==
LOC: SDC-PAIN 08:40
PROVIDERS: ATTEND Psychiatry & Neurology Pain Medicine
DX: M47.816 Spondylosis without myelopathy or radiculopathy, lumbar region (principal); E11.9 Type 2 diabetes mellitus without complications
CPT/HCPCS: 64493; 64494; 72020; 77002; 82947; J2704

== ENCOUNTER 2021-08-12 08:43 | Day surgery (SDC) | payer MEDICARE ==
[2011-10-25 21:37] VITALS: BP 146/88
[2021-08-12] MEDS ORDERED: Marcaine Mpf 0.5% Vial 30 Ml IJ ONE (08:44)
[2021-08-12] MEDS ORDERED: Depo-Medrol 40 MG/ML IM ONE (08:44)
[2021-08-12] MEDS ORDERED: XYLOCAINE-MPF 1% 5ML SDV IJ ONE (08:44)
[2021-08-12] MEDS ORDERED: DIPRIVAN 200 MG/20 ML IV ONE ×2 (10:03→10:17)
--- NOTE | 2021-08-12 11:31 | XRAY ---
Indication: Left L4-S1 RFA. Intraoperative fluoroscopy provided for 40 seconds. 3 digital spot image submitted for interpretation demonstrates posterior needle tips projecting over the expected left L4-S1 nerve roots. Correlate with intraoperative findings/report.
--- NOTE | 2021-08-12 11:37 | XRAY ---
40 seconds fluoroscopy time in surgery for left L4-S1 RFA.
[2021-08-12] MEDS ORDERED: Lactated Ringers 1,000 ML IV ONE (14:02)
== END 2021-08-12 10:38 | disposition home or self-care (01) ==
LOC: SDC-PAIN 08:43
PROVIDERS: ATTEND Psychiatry & Neurology Pain Medicine
DX: M47.816 Spondylosis without myelopathy or radiculopathy, lumbar region (principal); E11.9 Type 2 diabetes mellitus without complications; Z79.899 Other long term (current) drug therapy
CPT/HCPCS: 64635; 64636; 72100; 77002; 82947; J1030; J2704

== ENCOUNTER 2021-08-19 08:36 | Day surgery (SDC) | payer MEDICARE ==
[2011-10-25 21:37] VITALS: BP 146/88
[2021-08-19] MEDS ORDERED: XYLOCAINE-MPF 1% 5ML SDV IJ ONE (08:37)
[2021-08-19] MEDS ORDERED: LIDOCAINE HCL 2% 100 MG/5 ML IJ ONE (08:37)
[2021-08-19] MEDS ORDERED: DIPRIVAN 200 MG/20 ML IV ONE (08:37)
[2021-08-19] MEDS ORDERED: Marcaine Mpf 0.5% Vial 30 Ml IJ ONE (08:37)
[2021-08-19] MEDS ORDERED: Depo-Medrol 40 MG/ML IM ONE (08:37)
[2021-08-19] MEDS ORDERED: Lactated Ringers 1,000 ML IV ONE (10:22)
--- NOTE | 2021-08-19 11:02 | XRAY ---
Indication: Right L4-S1 RFA. Intraoperative fluoroscopy provided for 34 seconds. 4 digital spot images submitted for interpretation demonstrates posterior needle tips projecting over the expected right L4-S1 nerve roots. Correlate with intraoperative findings/report.
--- NOTE | 2021-08-19 11:05 | XRAY ---
34 seconds of fluoroscopy was used in surgery for a right L4-S1 RFA.
== END 2021-08-19 10:59 | disposition home or self-care (01) ==
LOC: SDC-PAIN 08:36
PROVIDERS: ATTEND Psychiatry & Neurology Pain Medicine
DX: M47.817 Spondylosis without myelopathy or radiculopathy, lumbosacral region (principal); E11.9 Type 2 diabetes mellitus without complications; Z79.899 Other long term (current) drug therapy
CPT/HCPCS: 64635; 64636; 72100; 77002; 82947; J1030; J2704

== ENCOUNTER 2022-05-05 07:34 | Day surgery (SDC) | payer MEDICARE ==
[2011-10-25 21:37] VITALS: BP 146/88
[2022-05-05] MEDS ORDERED: BUPIVACAINE 0.5% VIAL IJ ONE (07:35)
[2022-05-05] MEDS ORDERED: Depo-Medrol 40 MG/ML IM ONE (07:35)
[2022-05-05] MEDS ORDERED: LIDOCAINE HCL 1% 50 MG/5 ML VL PF IJ ONE (07:35)
[2022-05-05] MEDS ORDERED: DIPRIVAN 200 MG/20 ML IV ONE (08:54)
--- NOTE | 2022-05-05 10:20 | XRAY ---
Indication: Left L4-S1 RFA. Intraoperative fluoroscopy provided for 34 seconds. 5 digital spot image submitted for interpretation demonstrates posterior needle tips projecting over the expected left L4-S1 nerve roots. Correlate with intraoperative findings/report.
--- NOTE | 2022-05-05 12:45 | XRAY ---
34 seconds of fluoroscopy was used in surgery for a left L4-S1 RFA.
[2022-05-05] MEDS ORDERED: Lactated Ringers 1,000 ML IV ONE (13:13)
== END 2022-05-05 09:40 | disposition home or self-care (01) ==
LOC: SDC-PAIN 07:34
PROVIDERS: ATTEND Psychiatry & Neurology Pain Medicine
DX: M47.816 Spondylosis without myelopathy or radiculopathy, lumbar region (principal); E11.9 Type 2 diabetes mellitus without complications; Z79.899 Other long term (current) drug therapy
CPT/HCPCS: 64635; 64636; 72100; 77002; 82947; J1030; J2001; J2704

== ENCOUNTER 2022-05-12 09:32 | Day surgery (SDC) | payer MEDICARE ==
[2011-10-25 21:37] VITALS: BP 146/88
[2022-05-12] MEDS ORDERED: BUPIVACAINE 0.5% VIAL IJ ONE (09:33)
[2022-05-12] MEDS ORDERED: Depo-Medrol 40 MG/ML IM ONE (09:33)
[2022-05-12] MEDS ORDERED: LIDOCAINE HCL 1% 50 MG/5 ML VL PF IJ ONE (09:33)
[2022-05-12] MEDS ORDERED: DIPRIVAN 200 MG/20 ML IV ONE (12:00)
--- NOTE | 2022-05-12 13:02 | XRAY ---
Indication: Right L4-S1 RFA. Intraoperative fluoroscopy provided for 48 seconds. 4 digital spot image submitted for interpretation demonstrates posterior needle tips projecting over the expected right L4-S1 nerve roots. Correlate with intraoperative findings/report.
--- NOTE | 2022-05-12 13:04 | XRAY ---
48 seconds of fluoroscopy was used in surgery for a right L4-S1 RFA.
[2022-05-12] MEDS ORDERED: Lactated Ringers 1,000 ML IV ONE (15:04)
== END 2022-05-12 12:45 | disposition home or self-care (01) ==
LOC: SDC-PAIN 09:32
PROVIDERS: ATTEND Psychiatry & Neurology Pain Medicine
DX: M47.816 Spondylosis without myelopathy or radiculopathy, lumbar region (principal); E11.9 Type 2 diabetes mellitus without complications; Z79.899 Other long term (current) drug therapy
CPT/HCPCS: 64635; 64636; 72100; 77002; 82947; J1030; J2001; J2704

== ENCOUNTER 2022-09-08 09:55 | Day surgery (SDC) | payer MEDICARE ==
[2011-10-25 21:37] VITALS: BP 146/88
[2022-09-08] MEDS ORDERED: LIDOCAINE HCL 1% 50 MG/5 ML VL PF IJ ONE (09:56)
[2022-09-08] MEDS ORDERED: Depo-Medrol 40 MG/ML IM ONE (09:56)
[2022-09-08] MEDS ORDERED: BUPIVACAINE 0.5% VIAL IJ ONE (09:56)
[2022-09-08] MEDS ORDERED: DIPRIVAN 200 MG/20 ML IV ONE ×2 (11:46→11:54)
--- NOTE | 2022-09-08 13:42 | XRAY ---
Indication: Right knee genicular nerve ablation. Intraoperative fluoroscopy provided for 37 seconds. 4 digital spot images submitted for interpretation demonstrates anterior needle tips projecting medial/lateral supracondylar and medial tibial plateau. Correlate with intraoperative findings/report.
[2022-09-08] MEDS ORDERED: Lactated Ringers 1,000 ML IV ONE (16:45)
--- NOTE | 2022-09-08 20:11 | XRAY ---
37 seconds of fluoroscopy was used in surgery for a right genicular nerve ablation.
== END 2022-09-08 12:25 | disposition home or self-care (01) ==
LOC: SDC-PAIN 09:55
PROVIDERS: ATTEND Psychiatry & Neurology Pain Medicine
DX: M17.11 Unilateral primary osteoarthritis, right knee (principal); E11.9 Type 2 diabetes mellitus without complications; Z79.899 Other long term (current) drug therapy
CPT/HCPCS: 64624; 73560; 77002; 82947; J1030; J2001; J2704

== ENCOUNTER 2022-09-15 07:37 | Day surgery (SDC) | payer MEDICARE ==
[2011-10-25 21:37] VITALS: BP 146/88
[2022-09-15] MEDS ORDERED: BUPIVACAINE 0.5% VIAL IJ ONE (07:38)
[2022-09-15] MEDS ORDERED: XYLOCAINE 1% HCL 20 ML MDV IJ ONE (07:38)
[2022-09-15] MEDS ORDERED: Depo-Medrol 40 MG/ML IM ONE (07:38)
[2022-09-15] MEDS ORDERED: DIPRIVAN 200 MG/20 ML IV ONE ×2 (09:02→09:17)
--- NOTE | 2022-09-15 10:19 | XRAY ---
Indication: Left knee genicular nerve ablation. Intraoperative fluoroscopy provided for 24 seconds. 4 digital spot image submitted for interpretation demonstrates anterior needle tips projecting medial/lateral supracondylar and medial tibial plateau. Correlate with intraoperative findings/report.
[2022-09-15] MEDS ORDERED: Lactated Ringers 1,000 ML IV ONE (13:07)
--- NOTE | 2022-09-15 13:30 | XRAY ---
24 seconds of fluoroscopy was used in surgery for a left genicular nerve ablation.
== END 2022-09-15 09:37 | disposition home or self-care (01) ==
LOC: SDC-PAIN 07:37
PROVIDERS: ATTEND Psychiatry & Neurology Pain Medicine
DX: M17.12 Unilateral primary osteoarthritis, left knee (principal); E11.9 Type 2 diabetes mellitus without complications; Z79.899 Other long term (current) drug therapy
CPT/HCPCS: 64624; 73560; 77002; 82947; J1030; J2704